=== PATIENT | male | born 1935 | race Caucasian/White ===

== ENCOUNTER 2022-01-14 07:38 | Day surgery (SDC) | payer MEDICARE ==
[2022-01-14] VITALS (8 sets, daily range): BP systolic 128–144; BP diastolic 78–88
[~2022-01-14] VITALS: Ht 175.3 cm; Wt 76.1 kg
[2022-01-14] MEDS ORDERED: WARF2.5T82 PO (08:29)
[2022-01-14] MEDS ORDERED: METO-395 PO (08:30)
[2022-01-14] MEDS ORDERED: HYDR25TA4 PO (08:30)
[2022-01-14] MEDS ORDERED: LISI10TA27 PO (08:30)
[2022-01-14] MEDS ORDERED: LANS15CA18 PO (08:30)
[2022-01-14] MEDS ORDERED: TRAM50TA2 PO (08:32)
[2022-01-14 08:37] LABS: BASOPHILS % (AUTO) 0.5 % (0-1); EOSINOPHILS # (AUTO) 0.1 X10'3 (0-0.9); EOSINOPHILS % (AUTO) 1.3 % (0-6); HEMATOCRIT 39.9 % (42.0-52.0); HEMOGLOBIN 13.4 g/dl (14.0-17.9); LYMPHOCYTES # (AUTO) 1.6 X10'3 (1.1-4.8); MEAN CORPUSCULAR HEMOGLOBIN 30.7 PG (27.0-31.0); MEAN CORPUSCULAR HGB CONC 33.7 g/dL (33.0-36.5); MEAN PLATELET VOLUME 9.2 FL (7.4-10.4); MONOCYTES # (AUTO) 0.7 X10'3 (0-0.9); MONOCYTES % (AUTO) 7.5 % (2-12); NEUTROPHILS # (AUTO) 6.4 X10'3 (1.8-7.7); NEUTROPHILS % (AUTO) 72.7 % (42-75); PLATELET COUNT 216 X10'3 (140-440); RED BLOOD COUNT 4.38 X10'6 (4.70-6.10); WHITE BLOOD COUNT 8.7 X10'3 (4.5-11.0)
[2022-01-14 08:47] LABS: ALBUMIN 4.1 G/DL (3.4-5.0); ANION GAP 10 (8-16); BLOOD UREA NITROGEN 36 MG/DL (7-18); BUN/CREATININE RATIO 19.6 (5.4-32.0); CALCIUM 9.1 MG/DL (8.5-10.1); CHLORIDE 96 MMOL/L (99-107); CREATININE 1.84 MG/DL (0.60-1.10); GLUCOSE 109 MG/DL (70-104); MAGNESIUM 1.8 MG/DL (1.5-2.4); POTASSIUM 4.6 MMOL/L (3.5-5.1); SODIUM 131 MMOL/L (135-145); TOTAL CARBON DIOXIDE 25.2 MMOL/L (24-32); eGFR 35 ML/MIN
[2022-01-14] MEDS ORDERED: ceFAZolin inj. 2,000 MG in dextrose 5%-water 100 ML IV ONE (09:24)
[2022-01-14] MEDS ORDERED: vancomycin 1,500 MG in NS 300ml IV soln IV ONE (09:25)
[2022-01-14] MEDS ORDERED: fentaNYL/PF 50MCG/1 ML 2ML syringe ONE (10:01)
[2022-01-14] MEDS ORDERED: vancomycin 1,000mg inj ONE (10:01)
[2022-01-14] MEDS ORDERED: midazolam 1 mg/ML 2ml injection ONE ×2 (10:01→10:31)
[2022-01-14] MEDS ORDERED: LIDOCAINE 2% w/EPI 1:100:000 30mL injection MDV**cath lab 1 only ONE (10:01)
--- NOTE | 2022-01-14 11:09 | NUR ---
Patient returned from lab pack chemist s/p pacemaker generator change. Bedside report received from Alicia. PHELPS. Procedure site stable. Small amount of bleeding noted. Will continue to monitor.
[2022-01-14] MEDS ORDERED: normal saline 1000ml 1,000 ML IV SCH (11:40)
== END 2022-01-14 13:30 | disposition home or self-care (01) ==
LOC: SSTAY O 07:38
PROVIDERS: ATTEND Internal Medicine Cardiovascular Disease
DX: Z45.010 Encounter for checking and testing of cardiac pacemaker pulse generator [battery] (principal); I49.5 Sick sinus syndrome; I48.91 Unspecified atrial fibrillation; I10 Essential (primary) hypertension; K21.9 Gastro-esophageal reflux disease without esophagitis; Z79.899 Other long term (current) drug therapy; Z88.0 Allergy status to penicillin; Z88.8 Allergy status to other drugs, medicaments and biological substances; I48.20 Chronic atrial fibrillation, unspecified
CPT/HCPCS: 33228; 36415; 80048; 83735; 85025; 85610; 93005; 99152; 99153; C1785; J0690; J2250; J3010; J3370; J3490; J7030; J7040; J7060; A4620; A6258; C1786